=== PATIENT | male | born 1970 | race Caucasian/White ===

== ENCOUNTER 2017-07-01 08:31 | Emergency (ER) | payer BC ==
[~2017-07-01] VITALS: Ht 170.2 cm; Wt 114.4 kg
[2017-07-01] MEDS ORDERED: MOTRIN400 MG PO (11:50)
[2017-07-01 12:07] VITALS: BP 142/82
== END 2017-07-01 12:12 | disposition home or self-care (01) ==
LOC: EME 08:31
DX: S89.91XA Unspecified injury of right lower leg, initial encounter (principal); X50.1XXA Overexertion from prolonged static or awkward postures, initial encounter; Y92.002 Bathroom of unspecified non-institutional (private) residence as the place of occurrence of the external cause; Z88.0 Allergy status to penicillin
CPT/HCPCS: 73564; 99281; 99283